=== PATIENT | female | born 2000 | race Caucasian/White ===

== ENCOUNTER 2022-08-23 21:30 | Emergency (ER) | payer SELFPAY ==
[2022-08-23] MEDS ORDERED: Sodium Chloride 0.9% 1,000 ML IV ONE (22:48)
[2022-08-23] MEDS ORDERED: Acetaminophen 500 MG Tab PO ONE (23:02)
[2022-08-23] MEDS ORDERED: Cyclobenzaprine 10 MG Tab PO ONE (23:02)
[2022-08-23] MEDS ORDERED: Cephalexin 500 MG Cap PO ONE (23:17)
[2022-08-23 23:41] LABS: CARBON DIOXIDE,CO2 22.8 mmol/L (21.0-32.0); POTASSIUM,K 3.6 mmol/L (3.5-5.1)
== END 2022-08-24 00:25 | disposition home or self-care (01) ==
LOC: MW.ED 21:30
DX: O23.42 Unspecified infection of urinary tract in pregnancy, second trimester (principal); O99.891 Other specified diseases and conditions complicating pregnancy; M54.50 Low back pain, unspecified; Z3A.09 9 weeks gestation of pregnancy
CPT/HCPCS: 36415; 76801; 80053; 81001; 81025; 84702; 85025; 96360; 99284; A9270; J7030

== ENCOUNTER 2023-03-21 01:53 | Inpatient (IN) | payer MEDICAID ==
[2023-03-21] MEDS ORDERED: Water For Irrigation,Sterile 1,000 ML Container IRR PRN (02:57)
[2023-03-21] MEDS ORDERED: Carboprost Tromethamine 250 MCG/1 mL Vial IM PRN (02:57)
[2023-03-21] MEDS ORDERED: Sodium Chloride 0.9% 10 ML Syringe FLUSH PRN (02:57)
[2023-03-21] MEDS ORDERED: Ampicillin 2 GM in Sodium Chloride 0.9% 100 ML IV ONE (02:57)
[2023-03-21] MEDS ORDERED: Lidocaine 1% 50 ML MDV INJECT PRN (02:57)
[2023-03-21] MEDS ORDERED: Sodium Chloride 0.9% 20 ML SDV IV PRN (02:57)
[2023-03-21] MEDS ORDERED: Sodium Chloride 0.9% 2.5 ML Syringe FLUSH PRN (02:57)
[2023-03-21] MEDS ORDERED: Butorphanol 1 MG/ML SDV IVPUSH PRN (02:57)
[2023-03-21] MEDS ORDERED: Misoprostol 200 MCG Tab PO PRN (02:57)
[2023-03-21] MEDS ORDERED: Tranexamic Acid IN NACL,ISO-OS 1,000 MG in Premix Bag 1 BAG IV PRN ×2 (02:57)
[2023-03-21] MEDS ORDERED: Methylergonovine 0.2 MG/1 ML Amp IM PRN (02:57)
[2023-03-21] MEDS ORDERED: Oxytocin/0.9 % Sodium Chloride 30 UNIT/500 ML BAG IV SCH ×2 (03:00→10:30)
[2023-03-21 03:16] LABS: HEMATOCRIT 34.9 % (36.0-46.0); HEMOGLOBIN 11.2 g/dL (12.0-16.0); MEAN CORPUSCULAR HEMOGLOBIN 24.9 pg (27.0-32.0); MEAN CORPUSCULAR HGB CONC 32.1 g/dL (31.0-37.0); MEAN CORPUSCULAR VOLUME 77.7 fL (80.0-98.0); MEAN PLATELET VOLUME 12.5 fL (7.40-12.00); RED BLOOD CELL COUNT 4.49 M/uL (4.30-5.90); WHITE BLOOD CELL COUNT,WBC 10.36 K/uL (4.0-11.0)
[2023-03-21] MEDS: Lactated Ringers 1,000 ML IV SCH ×3 (03:18→15:10)
[2023-03-21] MEDS ORDERED: Ondansetron 4 MG/2 ML SDV IVPUSH PRN (03:25)
[2023-03-21] MEDS ORDERED: Nalbuphine HCl 10 MG/ 1ML Amp IVPUSH PRN (06:21)
[2023-03-21] MEDS: Ampicillin 1 GM in Sodium Chloride 0.9% 50 ML IV SCH ×3 (06:44→15:40)
[2023-03-21] MEDS ORDERED: Terbutaline 1 MG/ML SDV SUBCUT PRN (10:16)
[2023-03-21] MEDS ORDERED: Bupivacaine 0.5% 10 ML SDV ONE ×2 (14:52→15:29)
[2023-03-21] MEDS ORDERED: Ropivacaine/PF 400 MG/200 ML PCA ONE (14:52)
[2023-03-21] MEDS ORDERED: Lidocaine 2% 5 ML SDV ONE (15:29)
[2023-03-21] MEDS ORDERED: ePHEDrine 50 MG/ML SDV IVPUSH PRN ×2 (15:49)
[2023-03-21] MEDS ORDERED: Phenylephrine HCl 0.5 MG/5 ML AMP IVPUSH PRN (15:49)
[2023-03-21] MEDS ORDERED: Ropivacaine HCl/PF 400 MG in Premix Bag 1 BAG EPIDUR SCH (16:00)
[2023-03-21] MEDS ORDERED: Witch Hazel Medicated Pads 40/Jar TOP PRN (16:57)
[2023-03-21] MEDS ORDERED: Ibuprofen 400 MG Tab PO PRN (16:57)
[2023-03-21] MEDS ORDERED: oxyCODONE 5 MG Tab PO PRN (16:57)
[2023-03-21] MEDS ORDERED: Acetaminophen 500 MG Tab PO PRN (16:57)
[2023-03-21] MEDS ORDERED: Bisacodyl 10 MG Supp RECTAL PRN (16:57)
[2023-03-21] MEDS ORDERED: Docusate Sodium 100 MG Cap PO PRN (16:57)
[2023-03-21] MEDS ORDERED: Benzocaine/Menthol 20%-0.5% Spray 78 GM Cannister TOP PRN (16:57)
[2023-03-21] MEDS ORDERED: Lanolin 100% Cream 7 GM Tube TOP PRN (16:57)
[2023-03-21 17:57] LABS: PH,UMBILICAL ARTERIAL 7.192 (7.18-7.38); PH,UMBILICAL VENOUS 7.219 (7.25-7.45)
[2023-03-21] MEDS: Acetaminophen 500 MG Tab PO PRN (20:29)
[2023-03-21] MEDS: Ibuprofen 800 MG Tab PO PRN (23:12)
[2023-03-22] MEDS: Acetaminophen 500 MG Tab PO PRN (02:28)
[2023-03-22 05:47] LABS: HEMATOCRIT 31.3 % (36.0-46.0); HEMOGLOBIN 9.7 g/dL (12.0-16.0)
[2023-03-22] MEDS: Ibuprofen 800 MG Tab PO PRN ×2 (09:36→18:43)
[2023-03-23] MEDS: Acetaminophen 500 MG Tab PO PRN ×2 (00:57→17:32)
[2023-03-23] MEDS: Ibuprofen 800 MG Tab PO PRN ×2 (07:29→21:24)
== END 2023-03-23 22:40 | disposition home or self-care (01) | DRG 807 ==
LOC: MW.OBCHECK 01:53 → MW.OB 01:54 → MW.OBCHECK 02:58 → OBSVTOIN 16:42 → MW.OB 23:30
PROVIDERS: ADMIT Obstetrics & Gynecology; ATTEND Obstetrics & Gynecology
PROC: 10E0XZZ Delivery of Products of Conception, External Approach (ICD-10-PCS; principal; 2023-03-21)
PROC: 3E0R3BZ Introduction of Anesthetic Agent into Spinal Canal, Percutaneous Approach (ICD-10-PCS; 2023-03-21)
PROC: 00HU33Z Insertion of Infusion Device into Spinal Canal, Percutaneous Approach (ICD-10-PCS; 2023-03-21)
PROC: 3E033VJ Introduction of Other Hormone into Peripheral Vein, Percutaneous Approach (ICD-10-PCS; 2023-03-21)
DX: O42.02 Full-term premature rupture of membranes, onset of labor within 24 hours of rupture (principal); Z37.0 Single live birth; O48.0 Post-term pregnancy; Z3A.40 40 weeks gestation of pregnancy; O99.824 Streptococcus B carrier state complicating childbirth
CPT/HCPCS: 01967; 36415; 51701; 59025; 59409; 82803; 84112; 85014; 85018; 85027; 86592; 86850; 86900; 86901; A9270-GY; J0290; J2300; J2405; J2590; J2795; J3490; J7120